=== PATIENT | female | born 1995 | race Caucasian/White ===

== ENCOUNTER → 2019-08-01 | Outpatient (CLI) | payer OTHER | LOC: GMAL 14:11 | PROVIDERS: ATTEND Family Medicine | DX: D51.8 Other vitamin B12 deficiency anemias (principal); D53.9 Nutritional anemia, unspecified; R53.82 Chronic fatigue, unspecified; Z79.899 Other long term (current) drug therapy; E55.9 Vitamin D deficiency, unspecified ==

== ENCOUNTER → 2019-08-05 | Outpatient (CLI) | payer OTHER | LOC: GMAL 11:17 | PROVIDERS: ATTEND Family Medicine | DX: R53.82 Chronic fatigue, unspecified (principal) ==

== ENCOUNTER → 2019-12-09 | Outpatient (CLI) | payer OTHER | LOC: GMAL 11:00 | PROVIDERS: ATTEND Family Medicine | DX: D51.8 Other vitamin B12 deficiency anemias (principal); E03.9 Hypothyroidism, unspecified; E55.9 Vitamin D deficiency, unspecified ==

== ENCOUNTER → 2020-04-27 | Outpatient (CLI) | payer OTHER | LOC: GMAL 12:28 | PROVIDERS: ATTEND Family Medicine | DX: E06.3 Autoimmune thyroiditis (principal) ==